=== PATIENT | male | born 1935 | race Caucasian/White ===

== ENCOUNTER 2016-12-29 20:57 | Emergency (ER) | payer MEDICARE, OTHER | END 2016-12-29 21:00 | disposition left against medical advice (07) | LOC: D.ER 20:57 | DX: Z02.9 Encounter for administrative examinations, unspecified (principal) ==

== ENCOUNTER 2020-06-11 20:56 | Observation (INO) | payer MEDICARE ==
[~2020-06-11] VITALS: Ht 177.8 cm; Wt 113.6 kg
--- NOTE | ~2020-06-11 | CN ---
PATIENT NAME:SARA DORAN MEDICAL RECORD: [id number] : 33 LOCATION:[place] D.7 ADMIT DATE: 06/12/20 ACCOUNT: [id number] CONSULTING PHYSICIAN: BALJINDER LYLES MD REFERRING PHYSICIAN: JEANNA KNOX MD DATE OF CONSULTATION: 06/12/2020 HISTORY OF PRESENT ILLNESS: An 84-year-old gentleman with history of diabetes mellitus as well as hypertension, hyperlipidemia, admitted with chest pain, symptomology has been going for about a week with chest tightness and pressure with exertion, accompanied by left-sided weakness as well as amaurosis fugax type symptomatology with visual changes by his daughter;s report, falling to the left with left-sided weakness. He does have baseline neuropathy; however, this is different from his previous neuropathy, as well has noticed increasing shortness of breath as well. We are asked to see him concerning his cardiovascular status. PAST MEDICAL HISTORY: 1. Hypertension. 2. Hyperlipidemia. 3. Diabetes mellitus. 4. Peripheral neuropathy. MEDICATIONS: Include metformin 1 gram b.i.d., Ativan 0.5 p.o. t.i.d. p.r.n., Micardis 80 b.i.d., verapamil 360 every day. ALLERGIES: None known. SOCIAL HISTORY: Nonsmoker. Does drink beer occasionally, although not in excess. Easily takes care of all his ADLs. No set exercise program. REVIEW OF SYSTEMS: The patient reports easy bruising but reports no swollen glands. The patient reports no fever, no night sweats, no significant weight gain, no significant weight loss. No significant exercise tolerance. The patient reports no dry eyes, no irritation, no vision change. Patient reports no difficulty hearing and no ear pain. Patient reports no frequent nose bleeds or nose and sinus problems. Patient reports on arm pain on exertion. No shortness of breath while lying down. No history of heart murmur. Patient reports no cough, no wheezing or coughing up blood. Patient reports no abdominal pain, no vomiting. Normal appetite. No diarrhea and not vomiting blood. No nausea and no constipation. Patient reports no incontinence. No difficulty urinating. No hematuria. No increased frequency. Patient reports no muscle aches. No weakness, no arthralgias, no back pain. No swelling of the extremities. Patient reports no abnormal mole, no jaundice, no rashes. Reports no loss of consciousness. No weakness and no numbness. No seizures, dizziness, or headaches. The patient reports no depression, no sleep disturbance, feeling safe in a relationship and no alcohol abuse. Patient reports on fatigue. Reports no runny nose or sinus pressure. No itching, no hives, and no frequent sneezing. PHYSICAL EXAMINATION: GENERAL: Pleasant, in no acute distress, appears stated age. VITAL SIGNS: Blood pressure 149/92, pulse 87 and regular. HEENT: Normocephalic, atraumatic. NECK: No JVD or bruit. CONSULT REPORT [id number] SHEETS,SARA W HEART: Regular. A II/ systolic ejection murmur. LUNGS: Good air excursion. ABDOMEN: Soft, nontender. EXTREMITIES: Pulses 2+. No edema. DIAGNOSTIC DATA: EKG shows right bundle, left axis, nonspecific ST-T changes. IMPRESSION: Acute coronary syndrome, questionable transient ischemic attack type symptomatology. PLAN: For diagnostic angiography, 4-vessel arteriography. Further recommendations based on the above. TRANSINT:[id number] Voice Confirmation ID: [id number] DOCUMENT ID: [id number] BALJINDER LYLES MD CC: [id number] DICTATION DATE: 06/12/20901 LOG RAFTER: 06/12/20 1636 DIS IN 06/12/20 [facility] [address] [place] [address]
--- NOTE | ~2020-06-11 | OP ---
PATIENT NAME: SARA DORAN MEDICAL RECORD: [id number] :34 LOCATION:D.M2 D.2116 ADMISSION DATE:06/12/20 SURGEON: BALJINDER LYLES MD DATE OF OPERATION: 06/12/2020 PROCEDURES: Left carotid injection, right femoral artery approach. CATHETERS: A 5-Sami sheath, 5/4 left and right Nisa, 5/4 pig. The procedure was well tolerated. The patient returned to hoover, sheath removed. ExoSeal device placed. FINDINGS: Left ventriculography in 30-degree MCMILLAN view shows inferior basilar hypokinesis. Overall, function is reduced at 45%. CORONARY ANATOMY: LEFT MAIN: Left main free of disease. LAD: Has severe diffuse disease proximally, about 80% with good target distally. CIRCUMFLEX: Ostium has about 80% stenosis. Then, there is a large OM that appears to visual target. There is an ostial stenosis of the nez perce circumflex after takeoff of the OM; however, there is questionable target distally. Right coronary is totally occluded, fills via left to right collaterals. LEFT COMMON CAROTID: We were unable to engage the right common carotid, the left common carotid was selectively engaged is smooth-walled vessel, free of disease. Left internal carotid single vessel disease, left external carotid, smooth-walled vessel, free of disease. IMPRESSION: Multivessel coronary artery disease, questionable candidate for coronary bypass grafting. We will ask Dr. Faustin to evaluate films. We will need CTA to evaluate his right carotid in the near future. TRANSINT:[id number] Voice Confirmation ID: [id number] DOCUMENT ID: [id number] BALJINDER LYLES MD CC: [id number] DICTATION DATE: 06/12/20 1154 HEATING ELEMENT WINDER: 06/12/202221 DIS IN 06/12/20 [facility] [address] [place] [address]
--- NOTE | ~2020-06-11 | HEMODYNAMI ---
PATIENT:SARA DORAN MEDICAL RECORD: [id number] : 34 [id number] ADMISSION DATE: 06/12/20 Generatedon:06/12/202011:48 Patient name: SARA DORAN Patient #: [id number] : 1935 Date of study: 06/12/2020 Page: Of Hemodynamic Procedure Report Patient Data Patient Demographics Procedure consent was obtained First Name: SARA Gender: Male Last Name: ANDREEA : 1935 Middle Initial: W Age: 84 year(s) Patient #: [id number] Race: SSN: [id number] Additional ID: [id number] Contact details [address]: [address] [place] [address] rd State: [place] City: [place] Zip code: [address] Past Medical History Allergies: No known allergies Admission Admission Data Admission Date: 06/12/2020 Admission Time: 0:36 Arrival Date: 06/12/2020 Arrival Time: 0:00 Admit Source: Other Insurance Payor: Medicare Room #: D.2117 [facility] #: [id number] Height (in.): 69.69 BSA: 2.28 (m2) Height (cm.): 177 BMI: 36.07 (kg/m2) Weight (lbs.): 249.12 Weight (kg.): 113 Lab Results Lab Result Date: 06/12/2020 Lab Result Time: 0:00 Biochemistry Name Units Result Min Max BUN mg/dl 11 --(-*--)-- 7 18 Creatinine mg/dl 0.9 --(-*--)-- 0.6 1.3 eGFR ml/min 85.05587 -*(----)-- 90 120 NONAFRICAN CBC Name Units Result Min Max Hemoglobin g/dl 15.2 --(-*--)-- 13.5 17.5 Procedure Procedure Types Cath Procedure Diagnostic Procedure LHC LHC w/Coronaries Sedation Charges Moderate Sedation up to 30 minutes Peripheral Cath Diagnostic Procedure 4-Vessel Left Carotid Arteriogram Procedure Description Procedure Date Procedure Date: 06/12/2020 Procedure Start Time: 11:19 Procedure End Time: 11:46 Procedure Staff Name Function Ruben Galo MD Performing Physician Adenike Chen RT Monitor Ashley Ralph RN Nurse Stefani Ocampo RT Scrub Procedure Data Cath Procedure Fluoroscopy Diagnostic fluoroscopy Total fluoroscopy Time: 8.6 time: 8.6 min min Diagnostic fluoroscopy Total fluoroscopy dose: 853 dose: 853 mGy mGy Contrast Material Contrast Material Type Amount (ml) Isovue 300 100 Entry Location Entry Primary Successful Side Size Upsize Upsize Entry Closure Succes sful Closure Location (Fr) 1 (Fr) 2 (Fr) Remarks Device Remarks Femoral Right 5 Fr Exoseal artery Estimated blood loss: 5 ml Diagnostic catheters Device Type Used For End Catheter Placement MULTIPACK JL 4.0 5Fr Left Coronary catheter Angiography MULTIPACK 3DRC 5Fr Procedure catheter MULTIPACK Pigtail 5 Fr LV Angiography catheter MULTIPACK 3DRC 5Fr Procedure catheter DIAGNOSTIC JB3 4Fr Procedure catheter ([id number]) DIAGNOSTIC MPA-2 5Fr Procedure catheter ([id number]) Procedure Complications No complications Procedure Medications Medication Administration Route Dosage Oxygen etCO2 Nasal cannula 2 l/min Lidocaine 2% added to field 20 Heparin Flush Bag added to field 2 bags (1000units/500ml NS) 0.9% NaCl I.V. 100 ml/hr Versed I.V. 1 mg Fentanyl I.V. 50 mcg Versed I.V. 1 mg Fentanyl I.V. 50 mcg Hemodynamics Rest BSA: 2.28 (m2) HGB: 15.2 (g/dl) O2 Consumption: Estimated: 242.82 (ml/min) O2 Co nsumption indexed: Estimated:106.5 (ml/min/m) Heart Rate: 51 (bpm) Pressure Samples Time Site Value (mmHg) Purpose Heart Use Rate(bpm) 11:26 LV 76/10,15 Snapshot 44 Gradients Valve Time Site Site Mean SEP/DFP Peak To Heart Use 1 2 (mmHg) (sec/min) Peak Rate (mmHg) (bpm) Aortic 11:26 LV AO 42 Snapshots Pre Cath Intra NCS Post Cath Vital Signs Time Heart Resp SPO2 etCO2 NIBP Rhythm Pain Sedation Rate (ipm) (%) (mmHg) (mmHg) Status Level (bpm) 11:10:32 51 18 98 0 119/68(91) SB 0 (11) 10(A) , No pain 11:14:56 50 15 99 36.9 118/65(98) SB 0 (11) 10(A) , No pain 11:19:12 49 50 98 0 86/59(71) SB 0 (11) 10(A) , No pain 11:23:24 44 37 96 0 104/51(62) SB 0 (11) 9(A) , No pain 11:27:36 37 26 96 20.3 100/57(73) SB 0 (11) 9(A) , No pain 11:32:02 41 30 96 12 104/56(80) SB 0 (11) 10(A) , No pain 11:36:16 45 21 98 29.3 101/62(85) SB 0 (11) 10(A) , No pain 11:41:25 41 45 100 27.8 123/57(95) SB 0 (11) 10(A) , No pain 11:45:42 45 39 100 33.9 123/65(92) SB 0 (11) 10(A) , No pain Medications Time Medication Route Dose Verified Delivered Reason Notes Eff ectiveness by by 11:09:41 Oxygen etCO2 2 Ruben Stephanyie used for Nasal l/min St Damian Ralph RN procedure cannula 11:09:51 Lidocaine 2% added 20ml Ruben Ruben for local to vial [facility] anesthetic field MD CAL[place] 11:09:57 Heparin Flush added 2 Ruben Ruben used for Bag to bags [facility] procedure (1000units/500ml field MD CALIXTO NS) 11:10:07 0.9% NaCl I.V. 100 Ruben Buffie Per ml/hr St Damian Ralph RN physician 11:16:38 Versed I.V. 1 mg Ruben Stephanyie for St Damian Ralph RN sedation 11:16:44 Fentanyl I.V. [address] for mcg [address] Damian Ralph RN sedation 11:26:06 Versed I.V. 1 mg Ruben Buffie for [facility] Damian Ralph RN sedation 11:26:10 Fentanyl I.V. 50 Rub[address]ph[address] for mcg [address] Damian Ralph RN sedation Procedure Log Time Note 10:53:59 Arrival Date: 06/12/2020 12:00:00 AM 10:54:25 Admit Source: Other 10:54:28 Insurance Payor : Medicare 10:54:40 Patient Height : 69.69 inches 10:54:44 Patient Weight : 249.12 lbs 10:55:35 Lab Result : eGFR NONAFRICAN 85.93315 ml/min 10:55:35 Lab Result : Creatinine 0.9 mg/dl 10:55:35 Lab Result : BUN 11 mg/dl 10:55:35 Lab Result : Hemoglobin 15.2 g/dl 10:56:13 Procedure Status Urgent Heart Cath (IP). 10:56:16 Adenike April RT(R) (CV) sent for patient. Start room use. 10:56:17 Time tracking: Regular hours (M-F 7:00 - 5:00) 10:56:25 Plan of Care:Hemodynamics will remain stable., Cardiac rhythm will remain stable., Comfort level will be maintained., Respiratory function will remain adequate., Patient/ family verbilizes understanding of procedure., Procedure tolerated without complication., Recovers from procedure without complications.. 11:09:18 Vital chart was started 11:09:41 Oxygen 2 l/min etCO2 Nasal cannula was administered by Ashley Ralph RN; used for procedure; Verbal order read back and verified. 11:09:51 Lidocaine 2% 20ml vial added to field was administered by Ruben Galo MD; for local anesthetic; Verbal order read back and verified. 11:09:57 Heparin Flush Bag (1000units/500ml NS) 2 bags added to field was administered by Ruben Galo MD; used for procedure; Verbal order read back and verified. 11:10:07 0.9% NaCl 100 ml/hr I.V. was administered by Ashley Ralph RN; Per physician; Verbal order read back and verified. 11:11:58 Patient received from Med II to CCL 1 Alert and oriented. Tansferred to table in Supine position. 11:12:02 Signed procedure consent form obtained from patient. 11:12:04 Warm blankets applied, and maria esther hugger turned on for patient comfort. 11:12:04 Correct patient and procedure confirmed by team. 11:12:05 ECG and BP/O2 sat monitors applied to patient. 11:12:06 Baseline sample Acquired. 11:12:12 Rhythm: sinus rhythm 11:12:15 Full Disclosure recording started 11:12:16 - 11:12:21 H&P Date Dictated: 06/12/2020 Within 30 days and on chart., ER History o n chart.. 11:12:23 Pre-procedure instructions explained to patient. 11:12:24 Pre-op teaching completed and patient verbalized understanding. 11:12:27 Family in patients room. 11:12:29 Patient NPO since Midnight. 11:12:37 Is the patient allergic to Iodine/contrast media? No. 11:12:41 Was the patient premedicated? Yes 11:12:44 Is patient on blood thinner?No 11:12:48 Patient diabetic? Yes. 11:12:51 If diabetic: On Metformin? Yes 11:12:58 If on Metformin: Last Dose? 06/11/2020 11:13:03 ----Pre-sedation anethsthesia assessment.---- 11:13:09 Previous problem with sedation/anesthesia? No ? 11:13:11 Snore? Yes 11:13:14 Sleep apnea? No 11:13:17 Deviated septum? Unknown 11:13:20 Opens mouth fully? Yes 11:13:22 Sticks out tongue? Yes 11:13:27 Airway obstruction? Yes copd 11:13:34 Dentures? Unknown ? 11:13:40 Pre procedure: right dorsailis pedis pulse 2+ Normal; easily identifiable; not easily obliterated 11:13:51 IV patent on arrival in right hand with 0.9% NaCl at O. 11:13:57 Lab results completed and on chart. 11:14:03 Right groin area was prepped with chlora-prep and draped in sterile fashion 11:14:05 Alarms reviewed by R. N. 11:14:06 Sharps counted by scrub and verified by R.N. 11:14:12 Use device set Femoral Dx 11:14:13 ACIST Syringe (52975) opened to sterile field. 11:14:14 Bag Decanter (2001S) opened to sterile field. 11:14:14 Medline Cath Pack ([id number]) opened to sterile field. 11:14:16 ACIST Hand Control (80607) opened to sterile field. 11:14:16 ACIST Manifold (84673) opened to sterile field. 11:14:19 DIAGNOSTIC Multipack 5Fr catheter set ([id number]) opened to sterile field. 11:14:20 Tegaderm 4 x 4 (1626W) opened to sterile field. 11:14:21 SHEATH 5FR Emden (CLQ136) opened to sterile field. 11:14:22 EMERALD Guide Wire (009-339) opened to sterile field. 11:14:37 Patient allergic to No known allergies 11:15:50 Physician arrived 11:15:51 --------ALL STOP TIME OUT------ 11:15:52 Final Timeout: patient, procedure, and site verified with staff and physician. All members of the team are in agreement. 11:15:55 Right groin site verified by team. 11:16:00 Fire Safety Assessment: A--An alcohol-based skin anteseptic being used preoperatively., C--Open oxygen or nitrous oxide is being used., D--An ESU, laser, or fiber-optic light is being used. 11:16:05 Physical assessment completed. ASA score P 2 - A patient with mild systemic disease as per Ruben Galo MD. 11:16:11 2) 60-89 Mildly reduced kidney function, and other findings (as for stage 1) point to kidney disease. 11:16:16 Maximum allowable contrast dose (3.7 X eGFR X 0.75)235 ml. 11:16:24 Sedation plan: IV Moderate Sedation Medication:Versed, Fentanyl 11:16:38 Versed 1 mg I.V. was administered by Ashley Ralph RN; for sedation; Verbal order read back and verified. 11:16:44 Fentanyl 50 mcg I.V. was administered by Ashley Ralph RN; for sedation; Verbal order read back and verified. 11:18:33 Zero performed for pressure channel P1 11:18:39 Procedure started. 11:19:10 Local anesthetic to right femoral artery with Lidocaine 2% by Ruben Salgado MD.INITIAL ACCESS ONLY 11:20:52 A 5 Fr sheath was inserted into the Right Femoral artery 11:20:56 Zero performed for pressure channel P1 11:21:19 A MULTIPACK JL 4.0 5Fr catheter was advanced over the wire and used for Left Coronary Angiography. 11:21:52 LCA angiography performed. 11:21:58 Injector settings: Ml/sec: 3, Volume: 6, 11:23:47 Catheter removed. 11:23:55 A MULTIPACK 3DRC 5Fr catheter was advanced over the wire and used for Procedure. 11:24:53 RCA angiography performed. 11:25:03 Injector settings: Ml/sec: 3, Volume: 6, 11:25:14 Catheter removed. 11:25:36 A MULTIPACK Pigtail 5 Fr catheter was advanced over the wire and used for LV Angiography. 11:25:55 LV gram done using MCMLILAN 11:26:04 Injector settings: Ml/sec: 5, Volume: 15, 11:26:06 Versed 1 mg I.V. was administered by Ashley Ralph RN; for sedation; Verbal order read back and verified. 11:26:10 Fentanyl 50 mcg I.V. was administered by Ashley Ralph RN; for sedation; Verbal order read back and verified. 11:27:01 EF : 45 % 11:27:03 LV hemodynamics recorded. 11:27:05 Catheter removed. 11:27:30 A MULTIPACK 3DRC 5Fr catheter was advanced over the wire and used for Procedure. 11:31:18 Catheter removed. 11:31:43 A DIAGNOSTIC JB3 4Fr catheter ([id number]) was advanced over the wire and used for Procedure. 11:33:37 Left carotid angiography performed@4 FOR 8ML. 11:35:29 GLIDE WIRE ANGLE 260cm (ZP9455) opened to sterile field. 11:35:36 THE CATHETER IS REDIRECTED INTO THE RIGHT CAROTID WITH AN ANGLED GLIDE WIRE. 11:40:20 A DIAGNOSTIC MPA-2 5Fr catheter ([id number]) was advanced over the wire an d used for Procedure. 11:41:29 UNABLE TO MANUEVER CATHETER INTO THE RIGHT CAROTID. 11:41:31 Catheter removed. 11:41:33 EXOSEAL 5Fr (EX500) opened to sterile field. 11:41:47 Sheath removed intact; hemostasis achieved with Exoseal to the Right Femoral artery. 11:41:52 Procedure ended.(Physican Out) 11:42:22 Contrast amount:Isovue 300 100ml. 11:42:32 Fluoroscopy time 08.60 minutes. 11:42:49 Dose Area Product 51805 mGy/cm. 11:42:51 Fluoroscopy dose: 853 mGy 11:42:51 Flurop Dose total: 853 11:42:55 Maximum allowable dose exceeded? No. 11:42:57 Sharps counted by scrub and verified by R.N. 11:43:25 Post-op/insertion site Right Femoral artery dressed using a 4 x 4 and Tegaderm. 11:43:31 Post-procedure physical assessment completed. ASA score P 2 - A patient with mild systemic disease as per Ruben Galo MD. 11:43:37 Post procedure rhythm: unchanged. 11:43:41 Estimated blood loss: 5 ml 11:43:42 Post procedure instruction explained to patient.Patient verbalizes understanding. 11:43:43 Patient needs reinforcement of post procedure teaching. 11:44:28 Procedure type changed to Cath procedure, Diagnostic procedure, C, C w/Coronaries, Sedation Charges, Moderate Sedation up to 30 minutes, Peripheral Cath Diagnostic Procedure, 4-Vessel, Left Carotid Arteriogram 11:44:53 Procedure and supply charges have been captured, reviewed, submitted an d are correct. 11:46:05 Procedure Complication : No complications 11:46:10 Vital chart was stopped 11:46:12 [facility] Findings: mild to moderate CAD (<70%) 11:46:18 See physician's report for complete and final results. 11:46:20 Report given to [facility]. 11:46:24 Patient transfered to [facility] with Bed. 11:46:27 Procedure ended. 11:46:27 Full Disclosure recording stopped Device Usage Item Name Manufacture Quantity Catalog Hospital Part Current Minimal L ot# / Number Charge Number Stock Stock Serial# Code ACIST Acist 1 24257 459047 742050 138555 20 Syringe Medical (94674) Systems Inc Bag Microtek 1 160502 89585 382113 5 Decanter Medical Inc. () Medline Medline 1 [id number] 745941 23432 579913 5 Cath Pack ([id number]) ACIST Hand Acist 1 55931 737779 725953 751717 5 Control Medical (31293) Systems Inc ACIST Acist 1 80400 738983 058615 826871 5 [facility] (45194) Systems Inc DIAGNOSTIC Cardinal 1 TC7426 801573 62987 556222 30 Multipack Health 5Fr catheter set (KK8963) Tegaderm 4 3M 1 1626W 096449 059677 915427 5 x 4 (1626W) SHEATH 5FR Terumo 1 ZND307 712414 990606 726101 5 Emden (BCY835) EMERALD Cardinal 1 502-455 854348 233082 113171 5 Guide Wire Health (502-455) MULTIPACK Cardinal 1 125070 5 JL 4.0 5Fr Health catheter MULTIPACK Cardinal 1 177736 5 3DRC 5Fr Health catheter MULTIPACK Cardinal 1 295998 5 Pigtail 5 Health Fr catheter DIAGNOSTIC Cardinal 1 532-438 171258 786097 065628 5 JB3 4Fr Health catheter (799183) GLIDE WIRE Terumo 1 RM2935 365837 498037 829590 5 ANGLE 260cm (PD7725) DIAGNOSTIC Cardinal 1 060859Y 117400 254044 312332 5 MPA-2 5Fr Health catheter (486824J) EXOSEAL 5Fr Cardinal 1 EX500 998073 128972 537081 10 (EX500) Health Signature Audit Adair Stage Time Signature Unsigned Intra-Procedure 06/12/2020 Adenike 11:47:03 AM April RT(R) (CV) Intra-Procedure 06/12/2020 Ashley Ralph RN 11:47:33 AM Intra-Procedure 06/12/2020 Ruben Rodgers 11:48:00 AM Damian CALIXTO [facility] [address] [place] [address]
[2020-06-11 21:30] LABS: BILIRUBIN NEGATIVE (NEGATIVE); KETONE NEGATIVE (NEGATIVE); NITRITE NEGATIVE (NEGATIVE); UROBILINOGEN NORMAL mg/dL (< 2)
[2020-06-11 21:48] LABS: BASOPHILS 0.4 % (0-2); EOSINOPHILS 1.6 % (0-7); HEMATOCRIT 44.5 % (42.0-54.0); HEMOGLOBIN 15.2 g/dL (13.5-17.5); IMMATURE GRANULOCYTES 0.4 % (0-5); LYMPHOCYTES 16.9 % (15-50); MCH 32.4 pg (26.0-34.0); MCHC 34.2 g/dL (31.0-37.0); MCV 94.9 fL (80.0-100.0); MEAN PLATELET VOLUME 9.6 fL (7.4-10.4); MONOCYTES 11.3 % (2-11); NEUTROPHILS 69.4 % (40-80); PLATELET COUNT 169 10x3/uL (130-400); RBC 4.69 10x6/uL (4.20-6.10); RDW 12.9 % (11.5-14.5)
[2020-06-11 21:55] LABS: INR 1.04 (0.85-1.17); PROTIME 13.5 SECONDS (11.6-15.0)
[2020-06-11 21:56] LABS: APTT 29.9 SECONDS (22.8-39.4)
[2020-06-11 21:57] LABS: CALC OSMOLALITY 265 mosm/kg (275-300); CALCIUM 9.2 mg/dL (8.5-10.1); CARBON DIOXIDE 26.3 mmol/L (21.0-32.0); CHLORIDE - SERUM 100 mmol/L (98-107); CREATININE - SERUM 0.9 mg/dL (0.6-1.3); GLUCOSE 130 mg/dL (74-106); POTASSIUM - SERUM 3.7 mmol/L (3.5-5.1); SODIUM 132 mmol/L (136-145); UREA NITROGEN 11 mg/dL (7-18); eGFR NON AFRICAN AMERICAN 85 mL/min (90-120)
[2020-06-11 22:00] VITALS: BP 146/78
[2020-06-11 22:15] LABS: ALBUMIN 3.6 g/dL (3.4-5.0); ALKALINE PHOSPHATASE 51 U/L (30-120); ALT (SGPT) 21 U/L (10-68); BILIRUBIN - TOTAL 0.44 mg/dL (0.2-1.3); CKMB 2.3 U/L (0.0-3.6); CREATINE KINASE 100 UL (21-232); MAGNESIUM - SERUM 1.6 mg/dL (1.8-2.4); PROTEIN - SERUM 7.5 g/dL (6.4-8.2)
[2020-06-11 22:18] LABS: TROPONIN-I < 0.017 ng/mL (0.000-0.060)
[2020-06-11 23:00] VITALS: BP 150/86
[2020-06-12] MEDS ORDERED: MICARDIS80 MG PO (02:45)
[2020-06-12] MEDS ORDERED: VERELAN180 MG PO (02:46)
[2020-06-12] MEDS ORDERED: GABAPENTIN100 MG (02:46)
[2020-06-12] MEDS ORDERED: GLUCOPHAGE500 MG PO (02:47)
[2020-06-12] MEDS ORDERED: ATIVAN0.5 MG PO (02:48)
[2020-06-12] MEDS ORDERED: ULTRAM50 MG PO (02:50)
[2020-06-12 02:58] LABS: BASOPHILS 0.4 % (0-2); EOSINOPHILS 2.9 % (0-7); HEMATOCRIT 46.7 % (42.0-54.0); HEMOGLOBIN 15.8 g/dL (13.5-17.5); IMMATURE GRANULOCYTES 0.6 % (0-5); LYMPHOCYTES 30.3 % (15-50); MCH 32.4 pg (26.0-34.0); MCHC 33.8 g/dL (31.0-37.0); MCV 95.7 fL (80.0-100.0); MEAN PLATELET VOLUME 9.5 fL (7.4-10.4); MONOCYTES 13.5 % (2-11); NEUTROPHILS 52.3 % (40-80); PLATELET COUNT 170 10x3/uL (130-400); RBC 4.88 10x6/uL (4.20-6.10); WBC 5.2 10x3/uL (4.8-10.8)
[2020-06-12 03:11] LABS: APTT 30.5 SECONDS (22.8-39.4); PROTIME 13.2 SECONDS (11.6-15.0)
[2020-06-12 03:27] LABS: ALBUMIN 3.6 g/dL (3.4-5.0); ALKALINE PHOSPHATASE 52 U/L (30-120); ALT (SGPT) 19 U/L (10-68); CALC OSMOLALITY 273 mosm/kg (275-300); CALCIUM 8.9 mg/dL (8.5-10.1); CARBON DIOXIDE 26.9 mmol/L (21.0-32.0); CHLORIDE - SERUM 101 mmol/L (98-107); CREATINE KINASE 102 UL (21-232); CREATININE - SERUM 0.9 mg/dL (0.6-1.3); GLUCOSE 111 mg/dL (74-106); POTASSIUM - SERUM 3.8 mmol/L (3.5-5.1); PROTEIN - SERUM 7.5 g/dL (6.4-8.2); SODIUM 137 mmol/L (136-145); TROPONIN-I < 0.017 ng/mL (0.000-0.060); UREA NITROGEN 11 mg/dL (7-18); eGFR NON AFRICAN AMERICAN 85 mL/min (90-120)
[2020-06-12 03:53] VITALS: BP 165/92; BMI 35.9
[2020-06-12 04:00] VITALS: BP 157/83
[2020-06-12 08:00] VITALS: BP 149/92
--- NOTE | 2020-06-12 08:58 | NUR ---
PT FELL WHILE IN THE SHOWER. NO INJURIES NOTED, PT STATES THAT HE DID NOT HIT HIS HEAD. NOTIFIED DR. KNOX.
[2020-06-12 09:00] LABS: CHOL - HDL RATIO 3.1 ratio (2.3-4.9); LDL-HDL RATIO 1.8 ratio (1.5-3.5)
[2020-06-12 09:56] LABS: CKMB 2.3 U/L (0.0-3.6); CREATINE KINASE 104 UL (21-232); TROPONIN-I < 0.017 ng/mL (0.000-0.060)
--- NOTE | 2020-06-12 12:20 | NUR ---
RECEIVED PT BACK TO ROOM 2116. PT A LITTLE DROWSY BUT EASILY AROUSES TO VOICE. VITAL SIGNS STABLE, PLACED ON ON FREQUENT VITAL SIGNS. RT GROIN DRESSING CDI, NO S/S OF BLEEDING OR HEMATOMA NOTED. ORDERED LUNCH FOR PT. PT DENIES ANY OTHER NEEDS AT THIS TIME. CALL LIGHT IN REACH,FAMILY AT BEDSIDE, NAD NOTED, WILL CONTINUE TO MONITOR.
--- NOTE | 2020-06-12 13:19 | NUR ---
NO CHANGES TO RT GROIN FROM PREVIOUS ASSESSMENT. PT EATING LUNCH, DENIES ANY NEEDS AT THIS TIME. CALL LIGHT IN REACH, FAMILY AT BEDSIDE, NAD NOTED, WILL CONTINUE TO MONITOR.
[2020-06-12 14:01] VITALS: Ht 177.8 cm; Wt 113.6 kg
[2020-06-12 15:50] LABS: CKMB 1.6 U/L (0.0-3.6); CREATINE KINASE 89 UL (21-232)
[2020-06-12 16:12] VITALS: BP 130/73
[2020-06-12] MEDS ORDERED: ISOSORBIDE MONO30 M1 PO (16:57)
[2020-06-12] MEDS ORDERED: ASPIRIN81 MG PO (16:57)
--- NOTE | 2020-06-12 17:56 | NUR ---
PROVIDED VERBAL AND WRITTEN DISCHARGE TEACHING TO PT AND PT'S DAUGHTER, BOTH VERBALIZED UNDERSTANDING REGARDING TEACHING. D/C LT HAND IV WITH CATHETER TIP INTACT. HEART MONITOR REMOVED AND TAKEN TO LIQUID YEAST SUPERVISOR. WHEELED PT OUT TO ER ENTRANCE WITH ALL BELONGINGS, NAD NOTED.
--- NOTE | 2020-06-14 12:50 | MORECARE ---
CASE MANAGEMENT DISCHARGE SUMMARY PATIENT: SARA DORAN UNIT: [id number] ADM DATE: 06/12/20 AGE: 84 : 34 SEX: M ROOM/BED: D.2117 AUTHOR: ALMA SINGH PHYSICIAN: REFERRING PHYSICIAN: JEANNA KNOX MD DATE OF SERVICE: 06/14/20 Discharge Plan Patient Name: SARA DORAN [facility] [facility] 1935 Planned Disposition: Anticipated Discharge Date: Discharge Date: 06/12/2020 Expected LOS: 0 Initial Reviewer: [email or web address] Initial Review Date: 06/14/2020 Generated: 06/14/20 1:49 pm Coverage Notice Reviewer: [email or web address] - Nikki Jones Notice Issued Date-Time: 06/12/2020 14:36 Notice Type: Medicare Outpatient Observation Notice Notice Delivered To: Family Member Relationship to Patient: Daughter Overnight Stocker Name: Stephanie Jones Delivery Method: HAND - Hand Delivered Valerie Days: Prior Verbal Notification: Recipient Understood Notice: Yes Recipient Signature: Yes Med Rec Note Co-signed by Attending: Coverage Notice Comment: Patient Name: SARA DORAN Page [phone] at 1250 All edits/amendments must be made on the electronic document DICTATION DATE: 06/14/20 1249 BEREAVEMENT PROGRAM COORDINATOR: SHERLYN 06/14/20 1249 RPT#: [id number] DC DATE:06/12/20 STATUS: DIS IN [facility] [address] [place] [address] END OF REPORT
== END 2020-06-12 17:59 | disposition home or self-care (01) ==
LOC: D.ER 20:56 → D.M2 06-12 00:36 → OBSVTIME 06-12 00:36 → D.M2 06-12 05:53
PROVIDERS: Emergency Medicine; Internal Medicine Interventional Cardiology; ADMIT Family Medicine; ATTEND Family Medicine
DX: I25.10 Atherosclerotic heart disease of native coronary artery without angina pectoris (principal); I24.9 Acute ischemic heart disease, unspecified; I10 Essential (primary) hypertension; E11.40 Type 2 diabetes mellitus with diabetic neuropathy, unspecified; E78.5 Hyperlipidemia, unspecified; F41.9 Anxiety disorder, unspecified; Z79.84 Long term (current) use of oral hypoglycemic drugs; R07.9 Chest pain, unspecified

== ENCOUNTER 2020-06-15 23:28 | Emergency (ER) | payer MEDICARE ==
[~2020-06-15] VITALS: Ht 177.8 cm; Wt 112.3 kg
[~2020-06-15 23:28] MED LIST: ASPIRIN81 MG PO; ATIVAN0.5 MG PO; GABAPENTIN100 MG; GLUCOPHAGE500 MG PO; ISOSORBIDE MONO30 M1 PO; MICARDIS80 MG PO; ULTRAM50 MG PO; VERELAN180 MG PO
[2020-06-15 23:32] VITALS: Ht 177.8 cm; Wt 112.3 kg
[2020-06-15 23:56] LABS: HEMATOCRIT 42.8 % (42.0-54.0); HEMOGLOBIN 14.6 g/dL (13.5-17.5); LYMPHOCYTES 9.1 % (15-50); MCH 32.3 pg (26.0-34.0); MCHC 34.1 g/dL (31.0-37.0); MCV 94.7 fL (80.0-100.0); MEAN PLATELET VOLUME 9.4 fL (7.4-10.4); NEUTROPHILS 80.9 % (40-80); PLATELET COUNT 171 10x3/uL (130-400); RBC 4.52 10x6/uL (4.20-6.10); RDW 12.7 % (11.5-14.5); WBC 8.1 10x3/uL (4.8-10.8)
[2020-06-15 23:58] LABS: CALC OSMOLALITY 270 mosm/kg (275-300); CALCIUM 9.3 mg/dL (8.5-10.1); CARBON DIOXIDE 28.1 mmol/L (21.0-32.0); CHLORIDE - SERUM 99 mmol/L (98-107); CREATININE - SERUM 1.1 mg/dL (0.6-1.3); GLUCOSE 136 mg/dL (74-106); POTASSIUM - SERUM 4.2 mmol/L (3.5-5.1); SODIUM 134 mmol/L (136-145); UREA NITROGEN 15 mg/dL (7-18); eGFR NON AFRICAN AMERICAN 67 mL/min (90-120)
[2020-06-16] LABS: APTT 32.8 SECONDS (22.8-39.4); INR 1.05 (0.85-1.17); PROTIME 13.6 SECONDS (11.6-15.0)
[2020-06-16 00:01] LABS: D-DIMER-QUANTITATIVE 0.44 ug/mLFEU (0.20-0.54)
[2020-06-16 00:11] LABS: ALBUMIN 3.8 g/dL (3.4-5.0); ALKALINE PHOSPHATASE 57 U/L (30-120); ALT (SGPT) 21 U/L (10-68); BILIRUBIN - TOTAL 0.63 mg/dL (0.2-1.3); C-REACTIVE PROTEIN 0.3 mg/dL (0.0-0.9); LIPASE 91 U/L (73-393); MAGNESIUM - SERUM 1.9 mg/dL (1.8-2.4); PRO BNP 349 pg/mL (0-450); PROTEIN - SERUM 7.7 g/dL (6.4-8.2); TROPONIN-I < 0.017 ng/mL (0.000-0.060)
[2020-06-16 02:55] VITALS: BP 165/96
== END 2020-06-16 02:23 | disposition home or self-care (01) ==
LOC: D.ER 23:28
PROVIDERS: Family Medicine
DX: I25.10 Atherosclerotic heart disease of native coronary artery without angina pectoris (principal); I10 Essential (primary) hypertension; R11.2 Nausea with vomiting, unspecified; E11.9 Type 2 diabetes mellitus without complications; Z79.84 Long term (current) use of oral hypoglycemic drugs; J44.9 Chronic obstructive pulmonary disease, unspecified